=== PATIENT | male | born 1980 | race Caucasian/White ===

== ENCOUNTER 2018-01-08 06:15 | Day surgery (SDC) | payer OTHER ==
[2018-01-03 12:20] VITALS: BMI 22.1
[2018-01-08] MEDS ORDERED: Lactated Ringer's 1,000 ML IV ONE ×2 (07:00→09:21)
[2018-01-08] MEDS ORDERED: Lidocaine 4% (Laryng-O-Jet) Kit MM ONE (07:07)
[2018-01-08] MEDS ORDERED: Rocuronium 10 mg/ml (5 ml) ONE ×2 (07:07→10:22)
[2018-01-08] MEDS ORDERED: Propofol 10 mg/ml Inj (20 ML) ONE (07:07)
[2018-01-08] MEDS ORDERED: Succinylcholine 200 mg/10 ml Inj IV ONE (07:07)
[2018-01-08] MEDS ORDERED: Lidocaine 2% MPF (5 ml) Inj ONE (07:08)
[2018-01-08] MEDS ORDERED: Dexamethasone 4 mg/1 ml ONE (07:11)
[2018-01-08] MEDS ORDERED: Lidocaine 1% Inj (20ml) ONE (07:13)
[2018-01-08] MEDS ORDERED: EPINEPHrine 1 mg/ml (1:1000) Inj ONE ×2 (07:14→07:15)
[2018-01-08] MEDS ORDERED: Bupivacaine HCl 0.5% PF (30 ml) Inj ONE (07:14)
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
[2018-01-08] MEDS ORDERED: Midazolam 2 MG/2 ML VIAL ONE (07:56)
[2018-01-08] MEDS ORDERED: Etomidate 20 mg/10ml Inj IV ONE (08:08)
[2018-01-08] MEDS ORDERED: STERILE IRRIGATING SOLUTION 15 ML IR ONE (08:26)
[2018-01-08] MEDS ORDERED: Lidocaine 1% Inj (20ml) IJ ONE (09:10)
[2018-01-08] MEDS ORDERED: Bacitracin Opht OINT 3.5GM OU ONE (09:20)
[2018-01-08] MEDS ORDERED: Neostigmine 1:1000 (1 mg/ml) Inj ONE (09:39)
[2018-01-08] MEDS ORDERED: Oxycodone/Acetaminophen 5/325 mg Tab PO PRN ×2 (09:41)
[2018-01-08] MEDS ORDERED: Lactated Ringer's 1,000 ML IV SCH ×2 (09:45→12:00)
[2018-01-08] MEDS ORDERED: Ropivacaine 0.5% 30ML IV ONE (10:17)
[2018-01-08] MEDS ORDERED: methylPREDNISolone Depo 80 mg/ml Inj ONE (11:04)
[2018-01-08] MEDS ORDERED: methylPREDNISolone Depo 80 mg/ml Inj IM ONE (11:25)
--- NOTE | 2018-01-08 11:52 | PCM.ANESB1 ---
Interscalene Block - Brachial Plexus Date of Procedure: 01/08/18 Anesthesiologist: Ruben Pre-Procedure Diagnosis: Left shoulder labral tear Post-Procedure Diagnosis: Same Procedure Performed: Interscalene Block of Brachial Plexus Left - Procedure Interscalene Block of Brachial Plexus: This procedure was explained to the patient that it is for post-operative pain management. Consent was obtained after a thorough discussion with the patient regarding the benefits and possible complications of local anesthetic block of the Brachial Plexus at the Interscalene area. The patient was brought to the Operating Room and standard monitors were applied. Time out was held with the circulating nurse to confirm the correct surgery and appropriate block. After applying Oxygen by nasal cannula and administering IV Sedation, the patient's head was gently rotated away from the _left operative shoulder and the anterior scalene groove was carefully palpated. The ultrasound transducer was then applied to the skin in the transverse plane and the brachial plexus was visualized lateral to the carotid artery and in between the anterior and middle scalene muscles. After identification,the anterior lateral portion of the neck was prepped with Chloraprep and Lidocaine 1% was injected subcutaneously for topical analgesia. At this point, a # 22 gauge Stimuplex 2 inches insulated needle was inserted into the interscalene groove and directed in a caudal and midline direction. The needle was inserted lateral to the ultrasound transducer in-plane towards the brachial plexus in a [id number] direction. Needle advancement was performed carefully under direct ultrasound visualization. Nerve stimulator was used and twitched of the affected extremity including the hand brachialis muscles, biceps and the deltoid was obtained at a current of __0.4___MA. After repeated negative aspiration,__2___cc of_0.5%____,__bupivacaine with 1:200,000 epinephrine were injected and this was followed with _23____cc of __0.5___% ___bupivacaine with 1:200,000 epinephrine . Under ultrasound guidance the local anesthetics were observed surrounding the roots of the brachial plexus. The needle was removed intact. The patient had stable vital signs, was conscious and in no apparent distress. The patient tolerated the interscalene block of the bracheal plexus well with stable vital signs and was prepared for subsequent surgery.
[2018-01-08 13:19] VITALS: RESP 18; TEMP 98.4
[2018-01-08] MEDS ORDERED: Oxycodone/Acetaminophen 5/325 mg Tab PO ONE (14:35)
--- NOTE | 2018-01-08 15:47 | PCM.SURG1 ---
Surgeon's Initial Post Op Note - Surgeon's Notes Surgeon: Sachi Bridge Gang Worker: SERGIO Grande Type of Anesthesia: General Endo, Block Regional Anesthesia Administered By: DR Chu Pre-Operative Diagnosis: post traumatic drangemnt L shoulder Operative Findings: Slap lesion extending Ant to popst to root of biceps tendon. biceps tendon avuslsion. posterior labral tear Post-Operative Diagnosis: tear glenoid labrum extending anterior to posterior to root of biceps tendon. avulsion biceps tendon anchor. posterior labral tear. bursitis/adhesions subacromial space. subacromial impingment Operation Performed: arthroscopic repair slap tear(post traumatic) extendng anterior to posterior. intraraticular biceps teoodesis. partial arthroscopic acromioplasty. arthroscopic dberidemnt posterior labrum. arhtroscopic lysis of adhesions, bursectomy in subacromial space Specimen/Specimens Removed: bursa/adhesisons/bone Estimated Blood Loss: EBL {In ML}: 10 Blood Products Given: N/A Drains Used: No Drains Post-Op Condition: Good Date of Surgery/Procedure: 01/08/18 Time of Surgery/Procedure: 09:10 (time in room/anaetsheisa inducvtion time 750)
[2018-01-08 15:48] VITALS: BP 135/81; PULSE 96; O2SAT 98
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
== END 2018-01-08 15:20 | disposition home or self-care (01) ==
LOC: H.OPSURG 06:15
PROVIDERS: ATTEND Orthopaedic Surgery
DX: G89.29 Other chronic pain (principal)
CPT/HCPCS: 29807; 29822; 29825; 29828; 88304; J0171; J0330; J0690; J1040; J1100; J2001; J2250; J2405; J2704; J2710; J2765; J3010; J7030; J7120